=== PATIENT | female | born 1950 | race Caucasian/White ===

== ENCOUNTER → 2016-06-06 | Outpatient (CLI) | payer BC | LOC: MC.RAD 13:29 | DX: Z12.31 Encounter for screening mammogram for malignant neoplasm of breast (principal) ==

== ENCOUNTER → 2017-06-27 | Outpatient (CLI) | payer BC | LOC: MC.RAD 14:20 | DX: Z12.31 Encounter for screening mammogram for malignant neoplasm of breast (principal) ==

== ENCOUNTER 2018-03-09 13:19 | Emergency (ER) | payer BC ==
[~2018-03-09] VITALS: Ht 157.5 cm; Wt 77.3 kg
[2018-03-09 13:22] VITALS: TEMP 97.1
[2018-03-09] MEDS ORDERED: PROTONIX 40MG T40 MG PO (13:30)
[2018-03-09] MEDS ORDERED: EVISTA 60MG60 MG/TAB PO (13:30)
[2018-03-09] MEDS ORDERED: ZANTAC 300300 MG PO (13:31)
[2018-03-09] MEDS ORDERED: ZESTORETIC 12.51 TAB PO (13:31)
[2018-03-09] MEDS ORDERED: PERCOCET 325 MG1 TA2 PO (14:16)
[2018-03-09] MEDS ORDERED: ZOFRAN ODT4 MG PO ×3 (14:16→14:34)
[2018-03-09 14:55] VITALS: BP 127/69; PULSE 56
== END 2018-03-09 14:59 | disposition home or self-care (01) ==
LOC: COL.ER 13:19
DX: S42.201A Unspecified fracture of upper end of right humerus, initial encounter for closed fracture (principal); K21.9 Gastro-esophageal reflux disease without esophagitis; Z88.2 Allergy status to sulfonamides; Z88.1 Allergy status to other antibiotic agents; W01.0XXA Fall on same level from slipping, tripping and stumbling without subsequent striking against object, initial encounter; Y92.512 Supermarket, store or market as the place of occurrence of the external cause
CPT/HCPCS: J3010

== ENCOUNTER → 2018-07-18 | Outpatient (CLI) | payer BC ==
[~2018-07-18] MED LIST: EVISTA 60MG60 MG/TAB PO; PERCOCET 325 MG1 TA2 PO; PROTONIX 40MG T40 MG PO; ZANTAC 300300 MG PO; ZESTORETIC 12.51 TAB PO; ZOFRAN ODT4 MG PO
== END ==
LOC: MC.RAD 16:30
DX: Z12.31 Encounter for screening mammogram for malignant neoplasm of breast (principal)

== ENCOUNTER → 2020-11-29 | Outpatient (CLI) | payer MEDICARE, OTHER | LOC: MC.RAD 14:15 | DX: Z12.31 Encounter for screening mammogram for malignant neoplasm of breast (principal) ==

== ENCOUNTER → 2021-12-26 | Outpatient (CLI) | payer MEDICARE, OTHER | LOC: MC.RAD 13:08 | DX: Z12.31 Encounter for screening mammogram for malignant neoplasm of breast (principal) ==

== ENCOUNTER → 2023-02-07 | Outpatient (CLI) | payer MEDICARE, OTHER | LOC: CANSCHCLI → MC.RAD 13:22 | DX: Z12.31 Encounter for screening mammogram for malignant neoplasm of breast (principal) ==